=== PATIENT | female | born 1940 | race Caucasian/White ===

== ENCOUNTER → 2016-11-28 | Outpatient (CLI) | payer MEDICARE ==
[~2016-11-28] MED LIST: ATEN-104 PO; CALC-137 PO; DILT240C7 PO; ENAL20TA81 PO; ENOX40P SC; HYDR50TA5 PO; ISOS60TA PO; ROSU40 PO; ST JTAB PO; ULTR50TA PO
[2016-11-28 09:18] LABS: HEMATOCRIT 43.9 % (35.0-46.0); MEAN CELL VOLUME 91.6 FL (80.0-100.0); MEAN CORPUSCULAR HEMOGLOBIN 31.3 PG (27.0-34.0); MEAN CORPUSCULAR HGB CONC 34.1 % (32.0-36.0); PLATELET COUNT 241 TH/MM3 (150-450); RED BLOOD COUNT 4.79 MIL/MM3 (4.00-5.30); REVIEW FLAG FINAL; WHITE BLOOD COUNT 7.5 TH/MM3 (4.0-11.0)
[2016-11-28 09:48] LABS: ALKALINE PHOSPHATASE 58 U/L (45-117); ALT (GPT) 52 U/L (10-53); ANION GAP 10 MEQ/L (5-15); AST (GOT) 30 U/L (15-37); BICARBONATE 24.3 MEQ/L (21.0-32.0); BLOOD UREA NITROGEN 18 MG/DL (7-18); CHLORIDE 102 MEQ/L (98-107); GLOMERULAR FILTRATION RATE 59 ML/MIN (>89); GLUCOSE,FASTING 130 MG/DL (74-99); HDL CHOLESTEROL 48.7 MG/DL (40.0-60.0); LDL CHOLESTEROL 78 MG/DL (0-99); LDL CHOLESTEROL DIRECT 88 MG/DL (0-99); POTASSIUM 4.1 MEQ/L (3.5-5.1); SODIUM (NA) 136 MEQ/L (136-145); TOTAL BILIRUBIN ADULT 0.4 MG/DL (0.2-1.0)
[2016-11-28 10:25] LABS: MICRO ALBUMIN RANDOM URINE RAW 26.3 MG/L (0.0-30.0)
[2016-11-28 13:42] LABS: HEMOGLOBIN A1a 0.9 %; HEMOGLOBIN LA1C 2.3 %; HEMOGLOBIN P3 4.1 %
== END ==
LOC: PLAB 07:48
PROVIDERS: ATTEND Internal Medicine
DX: E78.5 Hyperlipidemia, unspecified (principal); E11.65 Type 2 diabetes mellitus with hyperglycemia; I10 Essential (primary) hypertension; Z12.11 Encounter for screening for malignant neoplasm of colon
CPT/HCPCS: 36415; 80053; 80061; 82043; 83036; 83721; 85027

== ENCOUNTER → 2017-03-25 | Outpatient (CLI) | payer MEDICARE ==
[2017-03-25 13:28] LABS: HEMATOCRIT 43.8 % (35.0-46.0); MEAN CELL VOLUME 94.6 FL (80.0-100.0); MEAN CORPUSCULAR HEMOGLOBIN 30.9 PG (27.0-34.0); MEAN CORPUSCULAR HGB CONC 32.7 % (32.0-36.0); PLATELET COUNT 241 TH/MM3 (150-450); RED BLOOD COUNT 4.63 MIL/MM3 (4.00-5.30); REVIEW FLAG FINAL; WHITE BLOOD COUNT 8.4 TH/MM3 (4.0-11.0)
[2017-03-25 14:27] LABS: ANION GAP 8 MEQ/L (5-15); BICARBONATE 25.6 MEQ/L (21.0-32.0); BLOOD UREA NITROGEN 20 MG/DL (7-18); CHLORIDE 101 MEQ/L (98-107); POTASSIUM 4.3 MEQ/L (3.5-5.1); SODIUM (NA) 135 MEQ/L (136-145)
[2017-03-25 14:28] LABS: AST (GOT) 30 U/L (15-37); GLOMERULAR FILTRATION RATE 62 ML/MIN (>89); GLUCOSE,FASTING 127 MG/DL (74-99)
[2017-03-25 14:36] LABS: ALKALINE PHOSPHATASE 46 U/L (45-117); ALT (GPT) 50 U/L (10-53); HDL CHOLESTEROL 49.5 MG/DL (40.0-60.0); LDL CHOLESTEROL 77 MG/DL (0-99); LDL CHOLESTEROL DIRECT 85 MG/DL (0-99); TOTAL BILIRUBIN ADULT 0.4 MG/DL (0.2-1.0)
[2017-03-25 16:18] LABS: HEMOGLOBIN A1a 0.8 %; HEMOGLOBIN A1b 1.8 %; HEMOGLOBIN Ao 84.9 %; HEMOGLOBIN LA1C 2.2 %; HEMOGLOBIN P3 5.2 %
[2017-03-25 23:51] LABS: MICRO ALBUMIN RANDOM URINE RAW 6.8 MG/L (0.0-30.0)
== END ==
LOC: PLAB 07:45
PROVIDERS: ATTEND Internal Medicine
DX: E11.65 Type 2 diabetes mellitus with hyperglycemia (principal); I10 Essential (primary) hypertension; E78.5 Hyperlipidemia, unspecified
CPT/HCPCS: 36415; 80053; 80061; 82043; 83036; 83721; 85027

== ENCOUNTER → 2017-07-28 | Outpatient (CLI) | payer MEDICARE ==
[2017-07-28 09:54] LABS: MEAN CELL VOLUME 92.3 FL (80.0-100.0); MEAN CORPUSCULAR HEMOGLOBIN 31.2 PG (27.0-34.0); MEAN CORPUSCULAR HGB CONC 33.8 % (32.0-36.0); PLATELET COUNT 255 TH/MM3 (150-450); RED BLOOD COUNT 4.65 MIL/MM3 (4.00-5.30); RED CELL DISTRIBUTION WIDTH 14.1 % (11.6-17.2); REVIEW FLAG FINAL; WHITE BLOOD COUNT 7.6 TH/MM3 (4.0-11.0)
[2017-07-28 10:16] LABS: ANION GAP 9 MEQ/L (5-15); AST (GOT) 23 U/L (15-37); BICARBONATE 26.3 MEQ/L (21.0-32.0); BLOOD UREA NITROGEN 18 MG/DL (7-18); CHLORIDE 98 MEQ/L (98-107); GLOMERULAR FILTRATION RATE 66 ML/MIN (>89); GLUCOSE,FASTING 123 MG/DL (74-99); POTASSIUM 3.9 MEQ/L (3.5-5.1); SODIUM (NA) 133 MEQ/L (136-145)
[2017-07-28 10:21] LABS: ALKALINE PHOSPHATASE 47 U/L (45-117); ALT (GPT) 39 U/L (10-53); HDL CHOLESTEROL 48.7 MG/DL (40.0-60.0); LDL CHOLESTEROL 54 MG/DL (0-99); LDL CHOLESTEROL DIRECT 76 MG/DL (0-99); TOTAL BILIRUBIN ADULT 0.5 MG/DL (0.2-1.0)
[2017-07-28 10:35] LABS: MICRO ALBUMIN RANDOM URINE RAW 6.1 MG/L (0.0-30.0)
[2017-07-28 16:34] LABS: HEMOGLOBIN A1a 0.9 %; HEMOGLOBIN Ao 84.3 %; HEMOGLOBIN LA1C 2.3 %
== END ==
LOC: PLAB 07:22
PROVIDERS: ATTEND Internal Medicine
DX: E11.65 Type 2 diabetes mellitus with hyperglycemia (principal); I10 Essential (primary) hypertension; E78.5 Hyperlipidemia, unspecified
CPT/HCPCS: 36415; 80053; 80061; 82043; 83036; 83721; 85027

== ENCOUNTER → 2017-12-29 | Outpatient (CLI) | payer MEDICARE ==
[2017-12-29 11:25] LABS: HEMATOCRIT 43.8 % (35.0-46.0); HEMOGLOBIN 15.1 GM/DL (11.6-15.3); MEAN CELL VOLUME 92.5 FL (80.0-100.0); MEAN CORPUSCULAR HEMOGLOBIN 31.8 PG (27.0-34.0); MEAN CORPUSCULAR HGB CONC 34.4 % (32.0-36.0); MEAN PLATELET VOLUME 8.7 FL (7.0-11.0); PLATELET COUNT 254 TH/MM3 (150-450); RED BLOOD COUNT 4.74 MIL/MM3 (4.00-5.30); WHITE BLOOD COUNT 7.8 TH/MM3 (4.0-11.0)
[2017-12-29 11:36] LABS: ALBUMIN 3.9 GM/DL (3.4-5.0); ALT (GPT) 38 U/L (10-53); AST (GOT) 25 U/L (15-37); BICARBONATE 26.5 MEQ/L (21.0-32.0); BLOOD UREA NITROGEN 20 MG/DL (7-18); CALCIUM 9.2 MG/DL (8.5-10.1); CHLORIDE 102 MEQ/L (98-107); CHOLESTEROL 151 MG/DL (120-200); CREATININE 0.94 MG/DL (0.50-1.00); GLOMERULAR FILTRATION RATE 58 ML/MIN (>89); GLUCOSE,FASTING 119 MG/DL (74-99); SODIUM (NA) 135 MEQ/L (136-145); TRIGLYCERIDES 169 MG/DL (42-150)
[2017-12-29 11:39] LABS: ALKALINE PHOSPHATASE 44 U/L (45-117); CHOLESTEROL/ HDL RATIO 3.17 RATIO; HDL CHOLESTEROL 47.6 MG/DL (40.0-60.0); LDL CHOLESTEROL 70 MG/DL (0-99); LDL CHOLESTEROL DIRECT 82 MG/DL (0-99); TOTAL BILIRUBIN ADULT 0.3 MG/DL (0.2-1.0); TOTAL PROTEIN 7.7 GM/DL (6.4-8.2)
[2017-12-29 16:33] LABS: HEMOGLOBIN A1C 6.2 % (4.3-6.0)
== END ==
LOC: PLAB 07:43
PROVIDERS: ATTEND Internal Medicine
DX: E11.65 Type 2 diabetes mellitus with hyperglycemia (principal); I10 Essential (primary) hypertension
CPT/HCPCS: 36415; 80053; 80061; 82043; 83036; 83721; 85027